=== PATIENT | female | born 1950 ===

== ENCOUNTER 2018-08-17 12:56 | Emergency (ER) | payer OTHER ==
[~2018-08-17] VITALS: Ht 152.4 cm; Wt 68.0 kg
[~2018-08-17 12:56] MED LIST: ASPIRIN81 M1; BTREX; COZAAR25 MG; DAFLONEX; HYALURONIDASE; NABUMETONE750 MG PO; NEURIN; ORPH100T PO; TOPROL XL50 M1; VASOFLEX FORTE1 CAP; VITAMIN D1000 UNIT; [UNRECOGNIZED DRUG - OTHER]
[2018-08-17] MEDS ORDERED: TOPROL XL50 M1 PO (13:49)
[2018-08-17] MEDS ORDERED: COZAAR50 MG PO (13:49)
== END 2018-08-17 15:59 | disposition home or self-care (01) ==
LOC: ER 12:56
DX: G89.11 Acute pain due to trauma (principal); M25.511 Pain in right shoulder; M75.51 Bursitis of right shoulder